=== PATIENT | female | born 1975 | race Caucasian/White ===

== ENCOUNTER → 2016-06-29 | Outpatient (CLI) | payer MEDICAID ==
[2016-06-29 19:45] LABS: ALT 33 U/L (9-52); AST 29 U/L (14-36); Alkaline Phosphatase 74 U/L (38-126); Anion Gap 11 mmol/L; Blood Urea Nitrogen 9 mg/dL (7-17); Calcium 9.6 mg/dL (8.4-10.2); Carbon Dioxide 27 mmol/L (22-30); Chloride 103 mmol/L (98-107); Cholesterol 182 mg/dL (<200); Glucose 102 mg/dL (74-99); HDL Cholesterol 56 mg/dL (40-60); Non-African American GFR(MDRD) >60 (>60 ml/min/1.73 sqM); Potassium 4.7 mmol/L (3.5-5.1); Sodium 141 mmol/L (137-145); Triglycerides 126 mg/dL (<150)
== END | disposition home or self-care (01) ==
LOC: MMGSC 12:31
PROVIDERS: ATTEND Family Medicine
DX: E03.9 Hypothyroidism, unspecified (principal); E55.9 Vitamin D deficiency, unspecified
CPT/HCPCS: 36415; 80053; 80061; 82306; 84439; 84443

== ENCOUNTER → 2017-03-05 | Outpatient (CLI) | payer MEDICAID, BC | END | disposition home or self-care (01) | LOC: MMGSC 14:56 | PROVIDERS: ATTEND Family Medicine | DX: E03.9 Hypothyroidism, unspecified (principal); E55.9 Vitamin D deficiency, unspecified | CPT/HCPCS: 36415; 82306; 84439; 84443 ==

== ENCOUNTER 2020-11-08 02:56 | Emergency (ER) | payer BC ==
[2020-11-08 03:01] VITALS: BP 140/86; PULSE 67; RESP 20; TEMP 97.9
[2020-11-08] MEDS ORDERED: IBUPROFEN 600 MG TAB PO STA (03:13)
[2020-11-08] MEDS ORDERED: ACETAMINOPHEN TAB 500 MG TAB PO STA (03:13)
--- NOTE | 2020-11-08 03:47 | ED ---
Upper Extremity HPI - General Chief Complaint: Extremity Injury, Upper Stated Complaint: Hand Pain Time Seen by Provider: 11/08/20 03:19 Source: patient, family Mode of arrival: ambulatory Limitations: no limitations - Related Data Allergies Allergy/AdvReac Type Severity Reaction Status Date / Time amoxicillin Allergy Rash/Hives Verified 11/08/20 03:01 Review of Systems ROS Statement: Those systems with pertinent positive or pertinent negative responses have been documented in the HPI. ROS Other: All systems not noted in ROS Statement are negative. Past Medical History Past Medical History: Thyroid Disorder Past Surgical History: No Surgical Hx Reported Smoking Status: Never smoker Past Alcohol Use History: None Reported Past Drug Use History: None Reported General Exam Limitations: no limitations Course Vital Signs 11/08/20 02:57 Temperature 97.9 F Pulse Rate 67 Respiratory 20 Rate Blood Pressure 140/86 O2 Sat by Pulse 99 Oximetry Disposition Clinical Impression: Sprain of right hand, Ulnar nerve palsy Disposition: HOME SELF-CARE Condition: Good Instructions (If sedation given, give patient instructions): Peripheral Neuropathy (ED), Paresthesia (ED) Is patient prescribed a controlled substance at d/c from ED?: No Referrals: Radha Manzo MD [Primary Care Provider] - 1-2 days
--- NOTE | 2020-11-08 04:07 | XR ---
EXAM: XR Right Hand Complete, 3 or More Views CLINICAL HISTORY: ITS.REASON XR Reason: injury TECHNIQUE: Frontal, lateral and oblique views of the right hand. COMPARISON: No relevant prior studies available. FINDINGS: Bones/joints: No acute fracture. No dislocation. Soft tissues: Unremarkable. No radiopaque foreign body. IMPRESSION: No acute osseous abnormalities.
== END 2020-11-08 04:35 | disposition home or self-care (01) ==
LOC: EC 02:56
DX: S63.91XA Sprain of unspecified part of right wrist and hand, initial encounter (principal); S64.01XA Injury of ulnar nerve at wrist and hand level of right arm, initial encounter; X58.XXXA Exposure to other specified factors, initial encounter
CPT/HCPCS: 99283

== ENCOUNTER → 2021-10-07 | Outpatient (CLI) | payer BC ==
--- NOTE | 2021-10-07 11:38 | US ---
EXAMINATION TYPE: US kidneys/renal and bladder DATE OF EXAM: 10/07/2021 COMPARISON: NONE CLINICAL HISTORY: R10.9, R31.9. Hematuria, pain. EXAM MEASUREMENTS: Right Kidney: 11.9 x 5.9 x 3.8 cm Left Kidney: 11.6 x 6.0 x 5.4 cm Right Kidney: Renal pelvis appears mildly dilated measuring 1.1 cm in transverse. This may partially be due to an extrarenal pelvis. Left Kidney: No hydronephrosis or masses seen Bladder: Appears anechoic Bilateral Jets seen: Yes Urinary bladder is sonolucent. The posterior wall is normal. IMPRESSION: No suspicious acute ultrasound abnormality bilateral kidneys.
== END | disposition home or self-care (01) ==
LOC: RADUSWWP 10:26
PROVIDERS: ATTEND Family Medicine
DX: R10.9 Unspecified abdominal pain (principal); R31.9 Hematuria, unspecified
CPT/HCPCS: 76770

== ENCOUNTER → 2021-10-28 | Outpatient (CLI) | payer BC ==
--- NOTE | 2021-10-30 08:48 | MM ---
Reason for exam: screening (asymptomatic). Last mammogram was performed 3 years and 10 months ago. History: Patient has history of other cancer at age 46. Family history of breast cancer in 3 aunts and breast cancer in 5 cousins. Reductions of both breasts, 2003. Physical Findings: A clinical breast exam by your physician is recommended on an annual basis and results should be correlated with mammographic findings. MG Screening Mammo w CAD Bilateral CC and MLO view(s) were taken. Prior study comparison: January 10, 2018, mammogram, performed at [facility]. March 07, 2014, mammogram, performed at [facility]. There are scattered fibroglandular densities. Benign appearing bilateral calcifications. No significant changes when compared with prior studies. ASSESSMENT: Benign, BI-RAD 2 RECOMMENDATION: Routine screening mammogram of both breasts in 1 year.
== END | disposition home or self-care (01) ==
LOC: RADMAMWWP 07:23
PROVIDERS: ATTEND Obstetrics & Gynecology
DX: Z12.31 Encounter for screening mammogram for malignant neoplasm of breast (principal); Z80.3 Family history of malignant neoplasm of breast
CPT/HCPCS: 77067

== ENCOUNTER → 2022-12-04 | Outpatient (CLI) | payer BC ==
[2022-12-04 15:50] LABS: Basophils # (A) 0.04 X 10*3/uL (0.00-0.10); Basophils % (A) 0.6 %; Eosinophils # (A) 0.08 X 10*3/uL (0.04-0.35); Eosinophils % (A) 1.2 %; HCT 42.5 % (37.2-46.3); Lymphocytes # (A) 2.08 X 10*3/uL (0.90-5.00); Lymphocytes % (A) 32.2 %; MCH 30.7 pg (27.0-32.0); MCHC 32.9 d/dL (32.0-37.0); MCV 93.2 FL (80.0-97.0); Mean Platelet Volume 10.5 FL (9.5-12.2); Monocytes # (A) 0.42 X 10*3/uL (0.20-1.00); Monocytes % (A) 6.5 %; NRBC Per 100 WBC 0 X 10*3/uL (0.00-0.01); Neutrophils # (A) 3.83 X 10*3/uL (1.80-7.70); Neutrophils % (A) 59.3 %; Platelet Count 331 X 10*3/uL (140-440); RBC 4.56 X 10*6/uL (4.10-5.20); RDW 12.7 % (11.5-14.5); WBC 6.46 X 10*3/uL (4.50-10.00)
[2022-12-04 16:14] LABS: BUN/Creat Ratio 23.43 Ratio (12.00-20.00); Blood Urea Nitrogen 16.4 mg/dL (9.0-27.0); Calcium 9.6 mg/dL (8.7-10.3); Carbon Dioxide 24.5 mmol/L (21.6-31.8); Chloride 104 mmol/L (96-109); Glucose 114 mg/dL (70-110); Potassium 4.9 mmol/L (3.5-5.5); Sodium 141 mmol/L (135-145)
== END | disposition home or self-care (01) ==
LOC: LABWHC1 07:45
PROVIDERS: ATTEND Orthopaedic Surgery Hand Surgery
DX: Z01.812 Encounter for preprocedural laboratory examination (principal); G56.01 Carpal tunnel syndrome, right upper limb
CPT/HCPCS: 36415; 80048; 85025

== ENCOUNTER 2022-12-30 07:57 | Day surgery (SDC) | payer BC ==
[2022-12-28 12:21] VITALS: BMI 34.7
--- NOTE | 2022-12-29 17:30 | P.HPOR ---
History of Present Illness H&P Date: 12/29/22 Subjective: This is a 46 year old female that presents today for follow up evaluation regarding right thumb pain, catching, locking, stiffness and clicking. She denies any injury or inciting event. She has tried a thumb spica soft wrap with little relief. She underwent a steroid injection in July of 2021 with 2 months of relief but her symptoms returned several weeks ago. When asked she also states she has had a few years of nocturnal numbness in the thumb, index, and middle fingers that is now every morning and getting worse. Physical Examination: RUE: AIN/PIN/Radial/Ulnar/Median motor intact. Radial/Ulnar/Median SILT. 2+/4 Radial/Ulnar pulses palpated. 5/5 APB, 5/5 FDI. Negative Finkelsteins, negative CMC grind, positive Durkan's compression. TTP over thumb A1 mishel with palpable nodule. Limited IP joint flexion/extension due to pain. Impression: 1.) Right thumb trigger finger 2.) Right carpal tunnel syndrome Plan: Diagnosis and treatment options were discussed with the patient. she is failed several injections for her right trigger thumb and bracing for her carpal tunnel syndrome. She would like to go forward with a right endoscopic versus open carpal tunnel release and a right thumb A1 mishel release. Risks and benefits of surgery including bleeding, infection, damage to surrounding tissue, need for further surgery, possible need to convert to open procedure, residual numbness were discussed and the patient wished to go forward with surgery. The patient is agreeable with this plan. CC: Dr Rios Dalton -David Randall DO Orthopedic Hand/Upper Extremity Surgeon Past Medical History Past Medical History: Thyroid Disorder History of Any Multi-Drug Resistant Organisms: None Reported Past Surgical History: Breast Surgery, Cholecystectomy, Tubal Ligation Past Anesthesia/Blood Transfusion Reactions: Postoperative Nausea & Vomiting ( PONV) Past Psychological History: Anxiety Smoking Status: Never smoker Past Alcohol Use History: Rare Past Drug Use History: None Reported - Past Family History Mother Family Medical History: AICD/Pacemaker, Diabetes Mellitus Additional Family Medical History / Comment(s): HEART DISEASE Medications and Allergies Home Medications Medication Instructions Recorded Confirmed Type Cholecalciferol [Vitamin D3 (25 25 mcg PO DAILY 12/28/22 12/28/22 History Mcg = 1000 Iu)] Levothyroxine Sodium [Synthroid] 175 mcg PO DAILY 12/28/22 12/28/22 History Multivitamins, Thera [Multivitamin 1 tab PO DAILY 12/28/22 12/28/22 History (formulary)] Allergies Allergy/AdvReac Type Severity Reaction Status Date / Time amoxicillin Allergy Rash/Hives Verified 12/28/22 12:12 Physical Examination Osteopathic Statement: *. No significant issues noted on an osteopathic structural exam other than those noted in the History and Physical/Consult.
[~2022-12-30 07:57] MED LIST: DEXAMETHASONE SOD PHOSPHATE 4 MG/ML 1 ML VIAL IV ONE; HYDROmorphone 0.5 MG/0.5 ML SYRINGE IVP PRN; LACTATED RINGERS 1,000 ML IV SCH; LIDOCAINE 1% (10MG/ML) FOR IV START INTRADERMA PRN; MIDAZOLAM 2 MG/2 ML VIAL IV PRN; ONDANSETRON 4 MG/2 ML VIAL IVP ONE; Pre Op ABX Message 1 EACH MISC MISCELLANE ONE
[2022-12-30 08:21] VITALS: RESP 16; TEMP 97.6
[2022-12-30] MEDS ORDERED: SCOPOLAMINE 1 MG/72 HR PATCH TRANSDERM ONE (08:28)
[2022-12-30] MEDS ORDERED: fentaNYL (PF) 50 MCG/ML 2 ML AMP ONE (09:12)
[2022-12-30] MEDS ORDERED: PROPOFOL 10 MG/ML 20 ML VIAL IV ONE (09:12)
[2022-12-30] MEDS ORDERED: MIDAZOLAM 2 MG/2 ML VIAL ONE (09:12)
[2022-12-30] MEDS ORDERED: LIDOCAINE 2% INJ 20 MG/ML SQ ONE (09:17)
[2022-12-30] MEDS ORDERED: BUPIVACAINE (PF) 0.5% 30 ML VIAL SQ ONE (09:17)
--- NOTE | 2022-12-30 09:37 | P.OP ---
Date of Procedure: 12/30/22 Preoperative Diagnosis: 1.) Right carpal tunnel syndrome 2.) Right thumb trigger finger Postoperative Diagnosis: 1.) Right carpal tunnel syndrome 2.) Right thumb trigger finger Procedure(s) Performed: 1.) Right endoscopic carpal tunnel release 2.) Right thumb trigger finger A1 mishel release Anesthesia: MAC Surgeon: David Randall Top Installer #1: Rick Mata Estimated Blood Loss (ml): 0 Pathology: none sent Condition: stable Disposition: PACU Description of Procedure: This is a 47 year old female who presents today for a right endoscopic carpal tunnel release and right thumb A1 mishel release after having failed conservative treatment in the past. Risks and benefits of surgery were discussed with the patient including bleeding, damage to surrounding tissue, infection, need to convert to open procedure, need for further surgery as well as risks of anesthesia including pulmonary embolism and even and the patient wished to proceed with surgical intervention. The patients was seen in the pre-operative area by myself. Consent and H&P were completed and updated. The correct extremity was marked in the pre-operative area by myself and all other questions were answered. Operative Narrative: The patient was brought to the operating room by the department of anesthesia. They remained on the portable stretcher and a rolling hand table was brought to the side of the operative extremity. Pre-operative time out was performed indicating the correct patient, procedure and laterality. All in the room agreed. The patient was then drifted off to sleep by the department of anesthesia. MAC anesthesia was utilized and a 50:50 mixture of 1% Lidocaine and 0.5% bupivacaine was injected into the subcutaneous tissues of the palmar skin, 8ccs total. A nonsterile tourniquet was then applied to the operative extremity and the right upper extremity was then prepped and draped in normal sterile fashion. The operative extremity was the exsanguinated with an esmarch bandage and the tourniquet was inflated to 250mmHg. 15 blade scalpel was utilized to make a transverse incision on the palmar skin just ulnar to the palmaris longus tendon at the level of the distal wrist crease. Ragnell retractor was then placed radially and blunt dissection was performed to reveal the distal forearm fascia. This was lifted with fine Terrell pick ups and Littler tenotomy scissors were then used to open the forearm fascia transversely and a double skin hook was then placed. Hamate finder was placed into the carpal tunnel and then sequential sized dilators were inserted followed by the synovial elevator to separate the flexor tenosynovium from the undersurface of the transverse carpal ligament and a washboard texture was felt. The MicroAire endoscopic carpal tunnel release system gun was the then inserted into the carpal tunnel hugging the deep portion of the transverse carpal ligament in line with the base of the ring finger. Transverse fibers of the ligament were directly visualized. Pressure was applied on the palm to reveal the distal extent of the transverse carpal ligament. The blade was then deployed and the distal half of the transverse carpal ligament was released. The scope was then brought distal again and remaining transverse fibers were incised with the blade. The proximal half of the transverse carpal ligament was then divided and again the scope was advanced distal and remaining transverse fibers were incised with the blade. The radial and ulnar leaflets were directly visualized and mobile consistent with complete release. Tenotomy scissors were then utilized to release the remaining distal forearm fascia under direct visualization taking care to preserve the palmar cutaneous branch of the median nerve. Skin closure was performed with interrupted 4-0 Monocryl suture followed by Mastisol and steri strips. Attention was drawn to the thumb. Transverse incision was made at the base of the thumb overlying the A1 mishel. Blunt dissection was taken down to the level of the A1 mishel. Ragnell retractors were placed both radially and ulnarly to protect neurovascular bundles. Littler tenotomy scissors were then used to release the A1 mishel from proximal to distal under direct visualization. Proximal fascial attachments were released. The tendon was then taken through range of motion and no locking or catching was appreciated. The wound was then closed with interrupted 4-0 nylon sutures in a horizontal mattress fashion. Sterile dressing was applied consisting of adaptic, 4x4s, Webril, and an marga bandage. Tourniquet was let down and the hand immediately was well perfused. The patient was then woken by the department of anesthesia and transferred to PACU in stable condition. Rick LOMAX was present for the case in its entirety and assisted in major portions of the case and protection of vital neurovascular structures. David Randall D.O. Orthopedic Hand/Upper Extremity Surgeon
[2022-12-30 09:58] VITALS: BP 138/78; PULSE 59
== END 2022-12-30 10:27 | disposition home or self-care (01) ==
LOC: OR 07:57
PROVIDERS: ATTEND Orthopaedic Surgery Hand Surgery
DX: G56.01 Carpal tunnel syndrome, right upper limb (principal); M65.311 Trigger thumb, right thumb; E07.9 Disorder of thyroid, unspecified; F41.9 Anxiety disorder, unspecified; Z98.51 Tubal ligation status; Z90.49 Acquired absence of other specified parts of digestive tract; Z86.59 Personal history of other mental and behavioral disorders; Z83.3 Family history of diabetes mellitus; Z82.49 Family history of ischemic heart disease and other diseases of the circulatory system; Z79.890 Hormone replacement therapy; Z88.0 Allergy status to penicillin
CPT/HCPCS: 81025; 29848; J2001; J2250; J1100; J2405; J3010; J2704